=== PATIENT | female | born 1970 | race Caucasian/White ===

== ENCOUNTER 2021-12-28 14:23 | Outpatient (CLI) | payer BC, SELFPAY ==
[2021-12-28 14:47] VITALS: BP 140/76; PULSE 69; RESP 16; TEMP 36.5; O2SAT 97; BMI 31.8
[2021-12-28] MEDS: 0.9% Saline Lock 10 ML Syringe IV ×2 (14:51→15:05)
[2021-12-28] MEDS: BEBTELOVIMAB 175 MG/2 ML VIAL IV (15:05)
[2021-12-28 15:29] VITALS: BP 124/73; PULSE 68; RESP 16; TEMP 36.7; O2SAT 99
[2021-12-28 16:05] VITALS: BP 123/70; PULSE 65; RESP 16; TEMP 36.8; O2SAT 99
== END 2021-12-28 16:05 | disposition home or self-care (01) ==
LOC: MS3OUT 14:25 → MS2 14:26
PROVIDERS: Visit Provider Internal Medicine Pulmonary Disease
DX: U07.1 COVID-19 (principal); J45.909 Unspecified asthma, uncomplicated
CPT/HCPCS: M0222; Q0222; A4216

== ENCOUNTER → 2023-05-26 | Outpatient (CLI) | payer BC, SELFPAY ==
--- NOTE | 2023-05-26 07:43 | CT_ITS ---
EXAM: CT CHEST WITHOUT INTRAVENOUS CONTRAST CLINICAL INDICATION: NODULE TECHNIQUE: Helically acquired images were obtained of the chest without intravenous contrast. This CT exam was performed using one or more of the following dose reduction techniques: automated exposure control, adjustment of the mA and/or kV according to patient size, and/or use of iterative reconstruction technique. COMPARISON: No relevant prior studies available. FINDINGS: LUNGS AND PLEURAL SPACES: There is a 7 mm nodule in the left lung base seen on series 2 image 73. There is a 2 mm pleural-based nodule in the left upper lobe seen on series 2 image 39. There is a pleural-based nodule in the right lung base and measures 6 mm seen on series 2 image 82. Lung-RADS score: 4A - Suspicious. Recommend low-dose CT (LDCT) in 3 months or PET/CT for solid components 8 mm or larger in size. No pneumothorax. HEART: There are minimal coronary artery calcifications present. Heart size is normal. No pericardial effusion. MEDIASTINUM: Unremarkable. No mediastinal or hilar adenopathy. Esophagus is unremarkable. No hiatal hernia. THYROID: Unremarkable. No thyroid lesions. BONES/JOINTS: Unremarkable. No suspicious lytic or blastic abnormality. VASCULATURE: See above. CT/Chest without Contrast IMPRESSION: Bilateral noncalcified nodules in largest in the left lower lobe. Electronically Signed: Levi Maldonado MD at 23:58 EST ,
== END | disposition home or self-care (01) ==
LOC: CT 07:40
PROVIDERS: Referring Provider Internal Medicine Pulmonary Disease; Visit Provider Internal Medicine Pulmonary Disease
DX: R91.1 Solitary pulmonary nodule (principal)
CPT/HCPCS: 71250